=== PATIENT | female | born 1965 | race Caucasian/White ===

== ENCOUNTER 2019-02-18 10:19 | Emergency (ER) | payer MEDICARE, BC, OTHER ==
[2019-02-18] MEDS: CYCLOBENZAPRINE 10 MG TAB PO (12:22)
[2019-02-18] MEDS: KETOROLAC 60 MG INJ IM (12:22)
[2019-02-18 12:33] LABS: ADD MAN DIFF? NO
[2019-02-18 12:39] LABS: BASOPHILS % 0.8 % (0.0-2.0); EOSINOPHILS # 0.1 10^3/ul (0.0-0.5); HEMATOCRIT 38.6 % (37.0-47.0); HEMOGLOBIN 13.1 g/dl (12.0-16.0); LYMPHOCYTES # 1.6 10^3/ul (0.8-2.9); LYMPHOCYTES % 41.4 % (15.0-51.0); MEAN CORPUSCULAR HEMOGLOBIN 30.1 pg (29.0-33.0); MEAN CORPUSCULAR HGB CONC 33.9 g/dl (32.0-37.0); MEAN CORPUSCULAR VOLUME 88.7 fl (82.0-101.0); MEAN PLATELET VOLUME 9.3 fl (7.4-10.4); MONOCYTE # 0.4 10^3/ul (0.3-0.9); MONOCYTES % 9.8 % (0.0-11.0); NEUTROPHIL # 1.8 10^3/ul (1.6-7.5); NEUTROPHILS % 44.7 % (39.0-77.0); PLATELET COUNT 281 10^3/UL (140-415); RED BLOOD COUNT 4.35 10^6/ul (4.20-5.40)
[2019-02-18 13:04] LABS: ALANINE AMINOTRANSFERASE 21 IU/L (13-69); ALBUMIN 4.5 g/dl (3.3-4.9); ALBUMIN/GLOBULIN RATIO 1.28; ALKALINE PHOSPHATASE 72 IU/L (42-121); ANION GAP 10 (5-13); ASPARTATE AMINO TRANSFERASE 23 IU/L (15-46); BILIRUBIN,INDIRECT 0.5 mg/dl (0-1.1); BILIRUBIN,TOTAL 0.5 mg/dl (0.2-1.3); BLOOD UREA NITROGEN 6 mg/dl (7-20); CALCIUM 9.4 mg/dl (8.4-10.2); CARBON DIOXIDE 26 mmol/L (21-31); CHLORIDE 101 mmol/L (97-110); CREATININE 0.56 mg/dl (0.44-1.00); Estimated GFR > 60 mL/min (>60); GLUCOSE 83 mg/dl (70-220); POTASSIUM 4.2 mmol/L (3.5-5.1); SODIUM 137 mmol/L (135-144)
[2019-02-18 13:47] LABS: HEMOGLOBIN A1C 5.3 % (0-5.9)
== END 2019-02-18 14:17 | disposition home or self-care (01) ==
LOC: FTE 10:19
DX: M54.12 Radiculopathy, cervical region (principal); M54.32 Sciatica, left side
CPT/HCPCS: 36415; 80053; 83036; 85025; 96372; 99284-25

== ENCOUNTER 2019-03-04 08:23 | Emergency (ER) | payer MEDICARE, BC ==
[2019-03-04] MEDS: KETOROLAC 15 MG INJ IM (09:51)
[2019-03-04] MEDS: MAGNESIUM CITRATE 300 ML BTL PO (09:51)
[2019-03-04] MEDS: DIAZEPAM 5 MG/ML SYG IM (10:51)
== END 2019-03-04 11:12 | disposition home or self-care (01) ==
LOC: E/R 08:23
DX: M54.12 Radiculopathy, cervical region (principal); K59.00 Constipation, unspecified; E03.9 Hypothyroidism, unspecified
CPT/HCPCS: 96372; 99284-25